=== PATIENT | male | born 1945 | race Hispanic/Latino ===

== ENCOUNTER 2019-02-04 13:45 | Emergency (ER) | payer MEDICARE ==
[~2019-02-04] VITALS: Ht 167.6 cm; Wt 74.8 kg
[~2019-02-04 13:45] MED LIST: GLIPIZIDE XL5 MG PO; HIGH CHOLESTEROL MED; KEFLEX250 MG PO; METFORMIN HCL500 MG; NAPROXEN500 MG PO; NORCO 5-325 TA1 EACH PO; ZOFRAN ODT4 MG PO
[2019-02-04] MEDS ORDERED: VENTOLIN HFA18 GM INH (14:04)
[2019-02-04] MEDS ORDERED: GLIPIZIDE ER2.5 MG PO (14:04)
[2019-02-04] MEDS ORDERED: ZITHROMAX250 MG PO (14:05)
[2019-02-04] MEDS ORDERED: AUGMENTIN 875-1 EACH PO (16:35)
== END 2019-02-04 16:55 | disposition home or self-care (01) ==
LOC: ED 13:45
DX: J40 Bronchitis, not specified as acute or chronic (principal); E11.9 Type 2 diabetes mellitus without complications; Z87.891 Personal history of nicotine dependence; Z88.8 Allergy status to other drugs, medicaments and biological substances
CPT/HCPCS: 71046; 80053; 85025; 99283-25